=== PATIENT | female | born 1980 | race Two or more races ===

== ENCOUNTER 2025-03-09 19:22 | Emergency (ER) | payer OTHER ==
[~2025-03-09] VITALS: Ht 167.6 cm; Wt 81.8 kg
[2025-03-09 19:41] VITALS: BP 144/88; PULSE 85; RESP 12; TEMP 98; O2SAT 97
--- NOTE | 2025-03-09 20:08 | ED.PDOC ---
Psychiatric HPI Comments 44-year-old female who came to ER for mental health issues. Patient states she is schizophrenic, and she has been unable to sleep since last night. States she has ran out of her lorazepam, and she wants a full refill prescription. Chief Complaint: Mental Health Time Seen by MD: 20:08 Reviewed Notes: Nurses Notes Information Source: Patient Mode of Arrival: EMS Severity: Unable to Care for Self, Unable to Control Self Severity of Pain: Moderate Severity of Mental Status: Moderate Severity of Symptoms: Moderate Timing: Hours Duration: Since onset Presents with: Anxiety, Unclear Thinking Associated signs and symptoms: Anxiety Past Medical History PAST MEDICAL HISTORY: Schizophrenia Surgical History: Denies all surgeries BEHAVIORAL HEALTH CLINICIAN History: Denies all BEHAVIORAL HEALTH CLINICIAN Hx Family History Family History: Reviewed,noncontributory to illness Social History Smoker: Non-Smoker Alcohol: Denies ETOH Use Drugs: Denies Drug Use Lives In: Home Constitutional: denies: chills, diaphoresis, fatigue, fever, malaise, sweats, weakness, others EENTM: denies: blurred vision, double vision, ear bleeding, ear discharge, ear drainage, ear pain, ear ringing, eye pain, eye redness, hearing loss, mouth pain, mouth swelling, nasal discharge, nose bleeding, nose congestion, nose pain, photophobia, tearing, throat pain, throat swelling, voice changes, others Respiratory: denies: cough, hemoptysis, orthopnea, SOB at rest, shortness of breath, SOB with excertion, stridor, wheezing, others Cardiovascular: denies: chest pain, dizzy spells, diaphoresis, Dyspnea on exertion, edema, irregular heart beat, left arm pain, lightheadedness, palpitations, PND, syncope, others Gastrointestinal: denies: abdomen distended, abdominal pain, blood streaked bowels, constipated, diarrhea, dysphagia, difficulty swallowing, hematemesis, melena, nausea, poor appetite, poor fluid intake, rectal bleeding, rectal pain, vomiting, others Genitourinary: denies: abnormal vagina bleeding, burning, dyspareunia, dysuria, flank pain, frequency, hematuria, incontinence, pain, , vagina discharge, urgency, others Neurological: denies: dizziness, fainting, headache, left sided numbness, left sided weakness, numbness, paresthesia, pre-existing deficit, right sided numbness, right sided weakness, seizure, speech problems, tingling, tremors, weakness, others Musculoskeletal: denies: back pain, gout, joint pain, joint swelling, muscle pain, muscle stiffness, neck pain, others Integumetry: denies: bruises, change in color, change in hair/nails, dryness, laceration, lesions, lumps, rash, wounds, others Allergic/Immunocompromised: denies: Difficulty Healing, Frequent Infections, Hives, Itching, others Hematologic/Lymphatic: denies: anemia, blood clots, easy bleeding, easy bruising, swollen glands, others Endocrine: denies: excessive hunger, excessive sweating, excessive thirst, excessive urination, flushing, intolerance to cold, intolerance to heat, unexplained weight gain, unexplained weight loss, others Psychiatric: reports: anxiety, schizophrenia, sleepless; denies: bipolar disorder, depression, hopeless, panic disorder, suicidal, others Physical Exam General Appearance: No Apparent Distress, Normal HEENT: Normal ENT Inspection, Pharynx Normal, TMs Normal Neck: Full Range of Motion, Non-Tender, Normal, Normal Inspection Respiratory: Chest Non-Tender, Lungs Clear, No Accessory Muscle Use, No Respiratory Distress, Normal Breath Sounds Cardiovascular: No Edema, No JVD, No Murmur, No Gallop, Normal Peripheral Pulses, Regular Rate/Rhythm Breast Exam: Deferred Gastrointestinal: No Organomegaly, Non Tender, No Pulsatile Mass, Normal Bowel Sounds, Soft Genitalia: Deferred Pelvic: Deferred Rectal: Deferred Extremities: No calf tenderness, Normal capillary refill, Normal inspection, Normal range of motion, Non-tender, No pedal edema Musculoskeletal : Apperance: Normal Neurologic: Alert, promotion producer II-XII nml as Tested, No Motor Deficits, Normal Affect, Normal Mood, No Sensory Deficits Cerebellar Function: Normal Reflexes: Normal Skin: Dry, Normal Color, Warm Lymphatic: No Adenopathy Was a procedure done? Was a procedure done?: No Psych Differential Dx Psych. Differential Dx: Anxiety, Bipolar Disorder, Schizoprenia, Sleepless X-Ray, Labs, Meds, VS Vital Signs Date Time Temp Pulse Resp B/P (MAP) Pulse Ox O2 Delivery O2 Flow Rate FiO2 03/09/25 19:41 98.0 85 12 144/88 97 98.0 Time of 1ST Reevaluation: 20:04 Reevaluation 1ST: Unchanged Patient Education/Counseling: Diagnosis, Treatment Family Education/Counseling: No Family Present Departure 1 Departure Time of Disposition: 21:00 Impression: Primary Impression: Insomnia Additional Impression: Schizophrenia Disposition: HOME / SELF CARE / HOMELESS Condition: Stable e-Prescriptions Oxcarbazepine (Trileptal) 600 Mg Tab 1 TAB PO BID for 90 Days, #180 TAB 3 Refills Prov: RAYA WATKINS MD 03/09/25 Olanzapine (Zyprexa) 20 Mg Tab 1 TAB PO QPM for 90 Days, #90 TAB 2 Refills Prov: RAYA WATKINS MD 03/09/25 Discharged With: Self Critical Care Note Critical Care Time?: No Stability Stability form required: No Heart Score Heart Score: Heart Score Response (Comments) Value History N/A 0 EKG N/A 0 Age N/A 0 Risk Factors N/A 0 Troponin N/A 0 Total 0 I personally scribed for RAYA WATKINS MD ([email or web address]) on 03/09/25 at 20:08. Electronically submitted by Rafa Gannon ([facility] RAYA WATKINS MD Mar 09, 2025 20:08
[2025-03-09] MEDS ORDERED: OXCA600T3 PO (20:12)
[2025-03-09] MEDS ORDERED: OLAN20TA PO (20:12)
== END 2025-03-10 01:10 | disposition home or self-care (01) ==
LOC: EDBD 19:22 → ER 19:22
DX: G47.00 Insomnia, unspecified (principal); F20.9 Schizophrenia, unspecified

== ENCOUNTER 2025-03-10 01:36 | Emergency (ER) | payer OTHER ==
[~2025-03-10] VITALS: Ht 180.3 cm; Wt 119.0 kg
[~2025-03-10 01:36] MED LIST: OLAN20TA PO; OXCA600T3 PO
[2025-03-10 01:40] VITALS: BP 143/86; PULSE 100; RESP 22; TEMP 99; O2SAT 98
--- NOTE | 2025-03-10 02:25 | ED.PDOC ---
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 PT ALSO STATED INSOMNIA, ANXIETY, AND PRESENTING APPREHENSIVE AND AFRAID. 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 HX: SCHIZOPHRENIA, BIPOLAR. GCS-15, ALL VSS. DENIES HI, CHANDLER, SI, SA X-RAY ANKLE NO THREE-VIEW THREE-VIEW RIGHT Chief Complaint: Mental Health Time Seen by MD: 01:47 Reviewed Notes: Nurses Notes, Medications, Allergies Information Source: Patient, Relative (Mother) Mode of Arrival: Ambulatory Past Medical History Immunizations: Current Medical History: Denies Operations: Denies Family History Family History: Reviewed,noncontributory to illness Social History Smoking: Non-Smoker Alcohol: Denies ETOH Use Drugs: Denies Drug Use Lives In: Home All Other Systems: Reviewed and Negative (SEE HPI) Physical Exam General Appearance: No Apparent Distress, Normal HEENT: Pharynx Normal Neck: Full Range of Motion, Non-Tender Respiratory: Chest Non-Tender, Lungs Clear, No Accessory Muscle Use, No Respiratory Distress, Normal Breath Sounds Cardiovascular: No Edema, No JVD, No Murmur, No Gallop, Normal Peripheral Pulses, Regular Rate/Rhythm Breast Exam: Deferred Gastrointestinal: No Organomegaly, Non Tender, No Pulsatile Mass, Normal Bowel Sounds, Soft Genitalia: Deferred Pelvic: Deferred Rectal: Deferred Extremities: Normal capillary refill, Normal range of motion, No pedal edema Musculoskeletal : Apperance: Normal Neurologic: Alert, No Motor Deficits, Normal Affect, Normal Mood, No Sensory Deficits Cerebellar Function: Normal Reflexes: Normal Skin: Dry, Normal Color, Warm Lymphatic: No Adenopathy Was a procedure done? Was a procedure done?: No Psych Differential Dx Psych. Differential Dx: Anxiety, Depression, Sleepless X-Ray, Labs, Meds, VS Vital Signs Date Time Temp Pulse Resp B/P (MAP) Pulse Ox O2 Delivery O2 Flow Rate FiO2 03/10/25 01:40 99.0 100 22 143/86 98 99.0 Current Medications Medications (Trade) Dose Ordered Sig/Jolanta Route Start Time Stop Time Status Last Admin Lorazepam (Ativan Tablet) 1 mg ONCE ONCE PO 03/10/25 04:00 03/10/25 04:02 DC 03/10/25 04:00 X-Ray, Labs, Meds, VS Comment GIVEN ATIVAN P.O. REPORTS IMPROVEMENT. PATIENT REQUESTING BUS PAST TO [facility] SUP NOTIFIED PATIENT PLACED IN LOBBY. Time of 1ST Reevaluation: 02:00 Reevaluation 1ST: Unchanged Time of 2ND Reevaluation: 03:49 Reevaluation 2ND: Improved Patient Education/Counseling: Diagnosis, Treatment, Prognosis, Need For Follow Up Family Education/Counseling: Diagnosis, Treatment, Prognosis, Need For Follow Up Departure 1 Departure Time of Disposition: 03:49 Impression: Primary Impression: Anxiety Disposition: 01 HOME / SELF CARE / HOMELESS Condition: Stable Discharged With: Self Critical Care Note Critical Care Time?: No Stability Stability form required: CRUZ Cervantes Mar 10, 2025 02:25
[2025-03-10] MEDS: LORazepam 0.5 MG TAB PO ONE (04:00)
== END 2025-03-10 06:07 | disposition home or self-care (01) ==
LOC: ER 01:36
DX: F41.9 Anxiety disorder, unspecified (principal); G47.00 Insomnia, unspecified; F20.9 Schizophrenia, unspecified; F31.9 Bipolar disorder, unspecified

== ENCOUNTER 2025-03-10 09:38 | Emergency (ER) | payer MEDICAID, OTHER ==
[~2025-03-10] VITALS: Ht 170.2 cm; Wt 90.9 kg
[2025-03-10 09:50] VITALS: TEMP 97.9
--- NOTE | 2025-03-10 10:03 | ED.PDOC ---
History of Present Illness HPI Comments A 44 YEAR OLD FEMALE PRESENTS TO THE ED WITH COMPLAINT OF REQUEST FOR MEDICATION. PATIENT STATES SHE HAS A HISTORY OF SCHIZOPHRENIA AND USUALLY TAKES ZYPREXA FOR THIS ISSUE. 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 PATIENT IS REQUESTING 1 DOSE OF HER ZYPREXA HERE IN THE ED. PATIENT DENIES SI, HI, FEVER, CHILLS, SHORTNESS OF BREATH, CHEST PAIN, ABDOMINAL PAIN, NAUSEA, VOMITING, HEADACHE, OR OTHER COMPLAINTS. NO OTHER SYMPTOMS OR MODIFYING FACTORS AT THIS TIME. PATIENT IS ALERT, ORIENTED X 4, AND HAS STEADY GAIT. Chief Complaint: Mental Health Time Seen by MD: 09:55 Reviewed Notes: Nurses Notes, Medications, Allergies Allergies: Coded Allergies: Cephalexin (Verified Allergy, Unknown, 03/10/25) Ibuprofen (Verified Allergy, Unknown, 03/10/25) Latex (Verified Allergy, Unknown, 03/10/25) Penicillins (Verified Allergy, Unknown, 03/10/25) Home Meds Active Scripts Oxcarbazepine (Trileptal) 600 Mg Tab, 1 TAB PO BID for 90 Days, #180 TAB 3 Refills Prov:RAYA WATKINS MD 03/09/25 Olanzapine (Zyprexa) 20 Mg Tab, 1 TAB PO QPM for 90 Days, #90 TAB 2 Refills Prov:RAYA WATKINS MD 03/09/25 Information Source: Patient Mode of Arrival: Ambulatory Severity: None Timing: Hours Duration: Since onset, Hours Prehospital treatment: None Medication Refill: Ran out of Medication, For: Other (REQUEST FOR MEDICATION) Past Medical History PAST MEDICAL HISTORY: Anxiety, Schizophrenia Surgical History: Denies all surgeries COIL WINDER History: Denies all COIL WINDER Hx Family History Family History: Reviewed,noncontributory to illness Social History Smoker: Non-Smoker Alcohol: Denies ETOH Use Drugs: Denies Drug Use Lives In: Home Constitutional: reports: others (ANXIOUS ); denies: chills, diaphoresis, fatigue, fever, malaise, sweats, weakness EENTM: denies: blurred vision, double vision, ear bleeding, ear discharge, ear drainage, ear pain, ear ringing, eye pain, eye redness, hearing loss, mouth pain, mouth swelling, nasal discharge, nose bleeding, nose congestion, nose pain, photophobia, tearing, throat pain, throat swelling, voice changes, others Respiratory: denies: cough, hemoptysis, orthopnea, SOB at rest, shortness of breath, SOB with excertion, stridor, wheezing, others Cardiovascular: denies: chest pain, dizzy spells, diaphoresis, Dyspnea on exertion, edema, irregular heart beat, left arm pain, lightheadedness, palpitations, PND, syncope, others Gastrointestinal: denies: abdomen distended, abdominal pain, blood streaked bowels, constipated, diarrhea, dysphagia, difficulty swallowing, hematemesis, melena, nausea, poor appetite, poor fluid intake, rectal bleeding, rectal pain, vomiting, others Genitourinary: denies: abnormal vagina bleeding, burning, dyspareunia, dysuria, flank pain, frequency, hematuria, incontinence, pain, , vagina discharge, urgency, others Neurological: denies: dizziness, fainting, headache, left sided numbness, left sided weakness, numbness, paresthesia, pre-existing deficit, right sided numbness, right sided weakness, seizure, speech problems, tingling, tremors, weakness, others Musculoskeletal: denies: back pain, gout, joint pain, joint swelling, muscle pain, muscle stiffness, neck pain, others Integumetry: denies: bruises, change in color, change in hair/nails, dryness, laceration, lesions, lumps, rash, wounds, others Allergic/Immunocompromised: denies: Difficulty Healing, Frequent Infections, Hives, Itching, others Hematologic/Lymphatic: denies: anemia, blood clots, easy bleeding, easy bruising, swollen glands, others Endocrine: denies: excessive hunger, excessive sweating, excessive thirst, excessive urination, flushing, intolerance to cold, intolerance to heat, unexplained weight gain, unexplained weight loss, others Psychiatric: reports: anxiety; denies: bipolar disorder, depression, hopeless, panic disorder, schizophrenia, sleepless, suicidal, others All Other Systems: Reviewed and Negative Physical Exam General Appearance: No Apparent Distress, Obese, Other (ANXIOUS ) HEENT: Normal ENT Inspection, PERRL/EOMI, Pharynx Normal, TMs Normal Neck: Full Range of Motion, Non-Tender, Normal, Normal Inspection Respiratory: Chest Non-Tender, Lungs Clear, No Accessory Muscle Use, No Respiratory Distress, Normal Breath Sounds Cardiovascular: No Edema, No JVD, No Murmur, No Gallop, Normal Peripheral Pulses, Regular Rate/Rhythm Breast Exam: Deferred Gastrointestinal: No Organomegaly, Non Tender, No Pulsatile Mass, Normal Bowel Sounds, Soft Genitalia: Deferred Pelvic: Deferred Rectal: Deferred Extremities: No calf tenderness, Normal capillary refill, Normal inspection, Normal range of motion, Non-tender, No pedal edema Musculoskeletal : Apperance: Normal Neurologic: Alert, oiler and greaser II-XII nml as Tested, No Motor Deficits, Normal Affect, Normal Mood, No Sensory Deficits Cerebellar Function: Normal Reflexes: Normal Skin: Dry, Normal Color, Warm Peripheral Pulses: 2+ carotid (R), 2+ carotid (L), 2+ dorsalis pedis (R), 2+ dorsalis pedis (L) Lymphatic: No Adenopathy Was a procedure done? Was a procedure done?: No Differential Dx Considerations may include: REQUEST FOR MEDICATION, MEDICATION ADMINISTERED, HISTORY OF SCHIZOPHRENIA X-Ray, Labs, Meds, VS Vital Signs Date Time Temp Pulse Resp B/P (MAP) Pulse Ox O2 Delivery O2 Flow Rate FiO2 03/10/25 09:50 97.9 80 22 135/92 98 97.9 Current Medications Medications (Trade) Dose Ordered Sig/Jolanta Route Start Time Stop Time Status Last Admin Olanzapine (ZyPREXA Tablet) 20 mg ONCE ONCE PO 03/10/25 10:00 03/10/25 10:01 DC 03/10/25 10:08 X-Ray, Labs, Meds, VS Comment EXTERNAL MEDICAL RECORDS REVIEWED: [NONE] INDEPENDENT HISTORIANS: [NONE] SOCIAL DETERMINANTS OF HEALTH: [NONE] LABS ORDERED: NONE REVIEWED AND INTERPRETED RESULTS: NONE IMAGING ORDERED: NONE TREATMENTS ORDERED: ZYPREXA 20 MG P.O. PROCEDURES PERFORMED: NONE CRITICAL CARE TIME: NONE I HAVE DISCUSSED THE PATIENT WITH THE ATTENDING PHYSICIAN DR. GARDUNO AND HE AGREES WITH THE PATIENT'S PLAN OF CARE AND DISPOSITION. BASED ON HISTORY OF PRESENT ILLNESS, AND PHYSICAL EXAM, PATIENT WILL BE DISCHARGED HOME. SHARED DECISION MAKING: PATIENT INSTRUCTED TO FOLLOW UP WITH PRIMARY CARE PROVIDER IN 1-2 DAYS FOR RE-EVALUATION OF SYMPTOMS. PATIENT VERBALIZES UNDERSTANDING TO RETURN TO ED FOR NEW OR WORSENING SYMPTOMS OR IF FOLLOW UP WITH PCP CANNOT BE OBTAINED. PATIENT FEELS COMFORTABLE GOING HOME AT THIS TIME. ALL QUESTIONS ADDRESSED AT TIME OF DISCHARGE. Time of 1ST Reevaluation: 10:30 Reevaluation 1ST: Improved Patient Education/Counseling: Diagnosis, Treatment, Need For Follow Up Family Education/Counseling: Diagnosis, Treatment, Need For Follow Up Medical Screening: No EMC Exist At This Time SEPSIS Sepsis Screen Vital Signs Date Time Temp Pulse Resp B/P (MAP) Pulse Ox O2 Delivery O2 Flow Rate FiO2 03/10/25 09:50 97.9 80 22 135/92 98 97.9 Medications Medications Dose Ordered Sig/Jolanta Route Start Time Stop Time Status Last Admin Dose Admin Olanzapine 20 mg ONCE ONCE PO 03/10/25 10:00 03/10/25 10:01 DC 03/10/25 10:08 Departure 1 Departure Time of Disposition: 10:30 Impression: Primary Impression: Medication administered Additional Impression: History of schizophrenia Disposition: 01 HOME / SELF CARE / HOMELESS Condition: Stable Additional Instructions: FOLLOW-UP WITH PCP IN 1 TO 2 DAYS. RETURN TO ED FOR ANY NEW OR WORSENING SYMPTOMS. Discharged With: Self Critical Care Note Critical Care Time?: No Stability Stability form required: No I personally scribed for RAMÍREZ SANTNAA ([email or web address]) on 03/10/25 at 10:03. Electronically submitted by Kvng Quiñones ([email or web address]). RAMÍREZ SANTANA Mar 10, 2025 10:03
[2025-03-10] MEDS: OLANZapine 5 MG TAB PO ONE (10:08)
[2025-03-10 19:36] VITALS: BP 98/70; PULSE 90; RESP 15; O2SAT 94
== END 2025-03-10 10:13 | disposition home or self-care (01) ==
LOC: ER 09:38 → EDBD 09:38 → ER 10:13
DX: F20.9 Schizophrenia, unspecified (principal); F41.9 Anxiety disorder, unspecified; Z79.899 Other long term (current) drug therapy; Z88.0 Allergy status to penicillin; Z88.1 Allergy status to other antibiotic agents; Z88.6 Allergy status to analgesic agent; Z91.040 Latex allergy status